=== PATIENT | male | born 1950 | race Caucasian/White ===

== ENCOUNTER 2021-03-27 15:46 | Emergency (ER) | payer MEDICARE, BC ==
[~2021-03-27] VITALS: Ht 177.8 cm; Wt 72.6 kg
--- NOTE | 2021-03-27 16:03 | NUR ---
c/o R flank pain since yesterday 10 pain scale. PT A/OX3. TOELRATING R/A WELL. CONNECTED PT TO POX AND TELE. PT HX OF KIDNEYSTONES. DIA DAUGHTER AT PTS BEDSIDE
--- NOTE | 2021-03-27 16:13 | NUR ---
URINE COLLECTED AND GIVEN TO LAB
--- NOTE | 2021-03-27 16:38 | NUR ---
RAC #20G S/L; PATENT AND INTACT. BLOOD WORK COLLECTED AND GIVEN TO LAB
--- NOTE | 2021-03-27 16:42 | NUR ---
PT TAKEN TO CT VIA W/C
[2021-03-27 16:49] LABS: BILIRUBIN,URINE NEGATIVE (NEGATIVE); COLOR,URINE YELLOW (YELLOW); LEUKOCYTE ESTERASE ,URINE NEGATIVE (NEGATIVE); NITRITE, URINE NEGATIVE (NEGATIVE); PH,URINE 5.5 (5.0-8.0); PROTEIN,URINE TRACE mg/dl (NEGATIVE); UGLUCOSE 100 MG/DL mg/dL (NEGATIVE); UROBILINOGEN,URINE 0.2 EU/dL (0.2)
[2021-03-27 17:03] LABS: BASOPHILS % (AUTO) 0.4 % (0.0-2.0); EOSINOPHILS % (AUTO) 0.9 % (0.0-6.0); HEMATOCRIT 40 % (39-51); HEMOGLOBIN 13.2 g/dL (13.5-17.5); LYMPHOCYTES % (AUTO) 15.5 % (20.0-44.0); MEAN CORPUSCULAR HGB CONC 33 g/dl (31.0-36.0); MEAN CORPUSCULAR VOLUME 103 fL (80-96); MONOCYTES % (AUTO) 8.1 % (2.0-12.0); NEUTROPHILS # (AUTO) 9.5 K/uL (1.8-8.9); NEUTROPHILS % (AUTO) 75.1 % (43.0-81.0); PLATELET COUNT (AUTO) 337 K/uL (150-450); RED BLOOD CELL COUNT(AUTO) 3.89 MIL/uL (4.5-6.0); WHITE BLOOD COUNT (AUTO) 12.7 K/uL (4.3-11.0)
[2021-03-27 17:10] LABS: CALCIUM, SERUM 8.4 mg/dL (8.5-10.1); CREATININE 1.2 mg/dL (0.6-1.3); POTASSIUM 3.6 mmol/L (3.5-5.1)
[2021-03-27] MEDS ORDERED: KETOROLAC TROMETHAMINE INJ 30 MG/ML VIAL ONE (17:14)
[2021-03-27 17:16] LABS: RBC,URINE 21-50 /HPF (0-2)
[2021-03-27 17:17] LABS: ALBUMIN 3.6 g/dL (3.4-5.0); BILIRUBIN,DIRECT 0.1 mg/dL (0.0-0.2); BILIRUBIN,TOTAL 0.3 mg/dL (0.2-1.0); TOTAL PROTEIN, SERUM 7.6 g/dL (6.4-8.2)
[2021-03-27 17:20] LABS: WBC,URINE 0-2 /HPF (0-3)
[2021-03-27] MEDS: KETOROLAC TROMETHAMINE INJ 30 MG/ML VIAL IV ONE (17:20)
[2021-03-27 17:21] LABS: BACTERIA,URINE RARE /HPF (None Seen); SQUAMOUS EPITHELIAL CELL,UR 0-2 /HPF (None Seen)
[2021-03-27] MEDS ORDERED: diphenhydrAMINE HCL 50 MG/ML VIAL ONE (17:23)
[2021-03-27] MEDS ORDERED: FAMOTIDINE/PF INJ 20 MG/2 ML VIAL IV ONE (17:24)
[2021-03-27] MEDS ORDERED: predniSONE 20 MG TABLET ONE (17:24)
[2021-03-27] MEDS: diphenhydrAMINE HCL 50 MG/ML VIAL IV ONE (17:32)
[2021-03-27] MEDS: predniSONE 10 MG TABLET PO ONE (17:32)
[2021-03-27] MEDS: FAMOTIDINE/PF INJ 20 MG/2 ML VIAL IV ONE (17:32)
--- NOTE | 2021-03-27 17:32 | NUR ---
PT NOTED WITH SOME SWELLING TO THE NECK. PT DENIES SOB, N/V/D/, ITCHINESS. SATTING 99% ON R/A; ADMIN MEDS ORDERED.
[2021-03-27 17:35] LABS: BAND % (MANUAL) 1 % (0.0-5.0); EOSINOPHILS % (MANUAL) 1 % (0-4); LYMPHOCYTES % (MANUAL) 25 % (16-48); MONOCYTES % (MANUAL) 3 % (0-11.0); NEUTROPHILS % (MANUAL) 70 (42-76)
[2021-03-27] MEDS ORDERED: TAMS-12 PO (17:35)
[2021-03-27] MEDS ORDERED: IBUP-1957 PO (17:35)
[2021-03-27] MEDS ORDERED: VALS160T2 PO (18:20)
--- NOTE | 2021-03-27 18:38 | NUR ---
Patient discharged to home in stable condition. RX Written and verbal after care instructions given. Patient verbalizes understanding of instruction. PT ambulatory with a steady gait
[2021-03-27 19:05] VITALS: BP 166/87
== END 2021-03-27 18:35 | disposition home or self-care (01) ==
LOC: ER 15:53
DX: N13.2 Hydronephrosis with renal and ureteral calculous obstruction (principal); F03.90 Unspecified dementia, unspecified severity, without behavioral disturbance, psychotic disturbance, mood disturbance, and anxiety; I10 Essential (primary) hypertension; Z88.9 Allergy status to unspecified drugs, medicaments and biological substances; Z79.899 Other long term (current) drug therapy
CPT/HCPCS: 36415; 74176; 80048; 80076; 81001; 83690; 85007; 85025; 96374; 96375; 99284; J1200; J1885; J3490; J7512 ×2